=== PATIENT | female | born 2005 | race Caucasian/White ===

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

== ENCOUNTER 2023-01-20 10:27 | Emergency (ER) | payer OTHER ==
[2023-01-20] MEDS ORDERED: predniSONE 20 MG TAB ONE (10:47)
[2023-01-20] MEDS ORDERED: Ipratropium/Albuterol 3 ML NEB ONE (10:53)
[2023-01-20 11:47] LABS: SARS-CoV-2 NAA Rapid Test Not Detected (NotDetected)
== END 2023-01-20 11:50 | disposition home or self-care (01) ==
LOC: ERS 10:27
DX: J45.901 Unspecified asthma with (acute) exacerbation (principal); H66.91 Otitis media, unspecified, right ear; F17.290 Nicotine dependence, other tobacco product, uncomplicated; Z79.899 Other long term (current) drug therapy; Z20.822 Contact with and (suspected) exposure to COVID-19
CPT/HCPCS: 99284; J7512; J7611; J7620